=== PATIENT | male | born 1940 | race Caucasian/White ===

== ENCOUNTER 2016-12-18 17:32 | Emergency (ER) | payer MEDICARE, OTHER ==
[2016-12-18] MEDS ORDERED: Labetalol 5 MG/ML 5 ML Syringe IVPUSH ONE (18:09)
[2016-12-18] MEDS ORDERED: Labetalol 5 MG/ML 5 ML Syringe ONE (18:11)
--- NOTE | 2016-12-18 18:31 | EDM.PDOC ---
ED HPI GENERAL MEDICAL PROBLEM - General Chief Complaint: Neuro Symptoms/Deficits Stated Complaint: UNK Time Seen by Provider: 12/18/16 18:31 - History of Present Illness INITIAL COMMENTS - FREE TEXT/NARRATIVE: HISTORY AND PHYSICAL: History of present illness: Patient is a 76-year-old white male with history of hypertension and non-insulin -dependent diabetes who presents with subacute onset of right upper extremity Dense paralysis and slurred speech this occurred 2 hours prior to arrival while he was birthing a calve Review of systems: As per history of present illness and below otherwise all systems reviewed and negative. Past medical history: As per history of present illness and as reviewed below otherwise noncontributory. Surgical history: As per history of present illness and as reviewed below otherwise noncontributory. Social history: No reported history of drug or alcohol abuse. Family history: As per history of present illness and as reviewed below otherwise noncontributory. Physical exam: HEENT: Atraumatic, normocephalic, pupils reactive, negative for conjunctival pallor or scleral icterus, mucous membranes moist, throat clear, neck supple, nontender, trachea midline. Lungs: Clear to auscultation, breath sounds equal bilaterally, chest nontender. Heart: S1S2, regular, negative for clicks, rubs, or JVD. Abdomen: Soft, nondistended, nontender. Negative for masses or hepatosplenomegaly. Negative for costovertebral tenderness. Pelvis: Stable nontender. Genitourinary: Deferred. Rectal: Deferred. Extremities: Atraumatic, negative for cords or calf pain. Neurovascular unremarkable. Neuro: Patient is awake and does follow commands has a dense paralysis of the right upper extremity and dysarthria in the form of slurred speech his stroke scale of 5 Diagnostics: CBC CMP PT/INR EKG chest x-ray CT brain Therapeutics: IV O2 monitor Impression: #1 hemorrhagic stroke Definitive disposition and diagnosis as appropriate pending reevaluation and review of above. - Related Data Allergies Allergy/AdvReac Type Severity Reaction Status Date / Time No Known Allergies Allergy Verified 12/18/16 18:15 Home Meds: Home Meds Atenolol 50 mg PO DAILY 08/27/14 [History] Glimepiride [Amaryl] 1 mg PO DAILY 08/27/14 [History] Lisinopril 2.5 mg PO DAILY 08/27/14 [History] Simvastatin [Zocor] 40 mg PO DAILY 08/27/14 [History] Triamterene/Hydrochlorothiazid [Triamterene-HCTZ 37.5-25 MG] 1 tab PO DAILY 02/03 [History] metFORMIN HCl [Metformin HCl] 1.5 tab PO BID 08/27/14 [History] Aspirin [Children's Aspirin] 81 mg PO DAILY 12/18/16 [History] Flaxseed Oil [Flax Oil] 1,000 mg PO DAILY 12/18/16 [History] Glucosamine/D3/Boswellia Vijaya [Osteo Bi-Flex Caplet] 1 each PO DAILY 12/18/16 [ History] Social & Family History - Alcohol Use Days Per Week of Alcohol Use: 0 Number of Drinks Per Day: 0 Total Drinks Per Week: 0 - Recreational Drug Use Recreational Drug Use: No Drug Use in Last 12 Months: No ED ROS GENERAL - Review of Systems Review Of Systems: ROS reveals no pertinent complaints other than HPI. ED EXAM, GENERAL - Physical Exam Exam: See Below (See dictation) Course - Vital Signs Text/Narrative:: Discuss case with Dr. Betancourt at [facility] emergency department he was gracious enough to accept the patient report was given to him by myself patient will be transferred via air medical with diagnosis of hemorrhagic stroke Last Recorded V/S: Last Vital Signs Temp 36.9 C 12/18/16 18:15 Pulse 60 12/18/16 18:15 Resp 18 12/18/16 18:15 BP 180/98 H 12/18/16 18:15 Pulse Ox 98 12/18/16 18:15 - Orders/Labs/Meds Meds: Medications Discontinued Medications Generic Name Dose Route Start Last Admin Trade Name Mainorq PRN Reason Stop Dose Admin Labetalol HCl 10 mg 12/18/16 18:09 Normodyne IVPUSH 12/18/16 18:10 .BOLUS ONE Labetalol HCl Confirm 12/18/16 18:11 Normodyne Administered 12/18/16 18:12 Dose 25 mg .ROUTE .STK-MED ONE Departure - Departure Time of Disposition: 18:30 Disposition: DC/Tfer to Acute Hospital 02 Condition: serious Clinical Impression: Hemorrhagic stroke Forms: ED Department Discharge
[2016-12-18] MEDS ORDERED: Ondansetron 4 MG/2 ML SDV IVPUSH ONE ×2 (18:37)
[2016-12-18] MEDS ORDERED: Ondansetron 4 MG/2 ML SDV ONE (18:38)
[2016-12-18 19:05] VITALS: BP 185/95
--- NOTE | 2016-12-19 14:14 | CT ---
EXAM DATE: 12/18/16 PATIENT'S AGE: 76 Patient: TIFFANY GOMES Facility: [place], [place] : 1940 Study: CT Head unk. STROKE-12/18/2016 6:11:28 PM Ordering Physician: Nina Final Report: INDICATION: Stroke TECHNIQUE: CT head without contrast. COMPARISON: None FINDINGS: There is an acute left basal ganglia hematoma measuring 2.8 x 1.6 x 2.7 cm. Minimal surrounding edema. No midline shift. Periventricular white matter changes likely due to small vessel disease. Ventricular size is normal. No extra-axial fluid collection. No evidence for acute territorial infarction. Osseous structures are intact. Visualized paranasal sinuses and mastoid air cells are normally aerated. IMPRESSION: Acute left basal ganglia intraparenchymal bleed. These findings were discussed with Dr. Wood at 6:19 p.m. on December 18, 2016. Dictated by Megan Mackey MD @ Dec 18 2016 6:13PM (Electronic Signature) Report Signed by Proxy and Original Signed Document filed in the Medical Record. MTDD
== END 2016-12-18 18:45 ==
LOC: MW.ED 17:32
DX: I62.9 Nontraumatic intracranial hemorrhage, unspecified (principal); R47.81 Slurred speech; G81.91 Hemiplegia, unspecified affecting right dominant side; I10 Essential (primary) hypertension; E11.9 Type 2 diabetes mellitus without complications; Z79.82 Long term (current) use of aspirin; Z79.899 Other long term (current) drug therapy; Z79.84 Long term (current) use of oral hypoglycemic drugs
CPT/HCPCS: 70450; 80053; 84484; 85025; 85610; 93005; 96374; 99285; J2405

== ENCOUNTER → 2017-01-02 | Outpatient (CLI) | payer MEDICARE, OTHER | LOC: MW.CHFP 08:00 | PROVIDERS: ATTEND Emergency Medicine | DX: I61.0 Nontraumatic intracerebral hemorrhage in hemisphere, subcortical (principal); I10 Essential (primary) hypertension; E78.00 Pure hypercholesterolemia, unspecified; E11.9 Type 2 diabetes mellitus without complications | CPT/HCPCS: G0463 ==

== ENCOUNTER → 2017-02-12 | Outpatient (CLI) | payer MEDICARE | LOC: MW.CHFP 07:41 | PROVIDERS: ATTEND Emergency Medicine | DX: E11.9 Type 2 diabetes mellitus without complications (principal); I10 Essential (primary) hypertension; E78.00 Pure hypercholesterolemia, unspecified; I61.0 Nontraumatic intracerebral hemorrhage in hemisphere, subcortical | CPT/HCPCS: 36415; 80053; 80061; 83036; 99214 ==

== ENCOUNTER 2023-05-18 10:51 | Emergency (ER) | payer MEDICARE ==
[2023-05-18] MEDS ORDERED: Sodium Chloride 0.9% 20 ML SDV IV PRN (10:58)
[2023-05-18] MEDS ORDERED: Sodium Chloride 0.9% 10 ML Syringe FLUSH PRN (10:58)
[2023-05-18] MEDS ORDERED: Sodium Chloride 0.9% 2.5 ML Syringe FLUSH PRN (10:58)
[2023-05-18 11:06] LABS: BASOPHILS ABSOLUTE AUTO 0.1 K/uL (0.0-0.1); BASOPHILS PERCENT AUTO 0.8 % (0.0-1.5); EOSINOPHILS ABSOLUTE AUTO 0.1 K/uL (0.0-0.7); EOSINOPHILS PERCENT AUTO 2.3 % (0.0-7.0); HEMATOCRIT 37.9 % (38.0-50.0); LYMPHOCYTES ABSOLUTE AUTO 1.6 K/uL (0.6-2.4); LYMPHOCYTES PERCENT AUTO 25.4 % (16.0-40.0); MEAN CORPUSCULAR HGB CONC 34.3 g/dL (31.0-37.0); MEAN CORPUSCULAR VOLUME 93.3 fL (80.0-98.0); MONOCYTES ABSOLUTE AUTO 0.7 K/uL (0.0-0.8); MONOCYTES PERCENT AUTO 10.6 % (0.0-15.0); NEUTROPHILS ABSOLUTE AUTO 3.8 K/uL (1.4-5.7); NEUTROPHILS PERCENT AUTO 60.9 % (48.0-80.0); NRBC ABSOLUTE 0 K/uL; PLATELET COUNT,PLT 149 K/uL (150-400); RED BLOOD CELL COUNT 4.06 M/uL (4.50-5.90); WHITE BLOOD CELL COUNT,WBC 6.15 K/uL (4.0-11.0)
[2023-05-18 11:15] LABS: INR 0.98 (0.86-1.11); PTT,PARTIAL THROMBOPLSTIN TIME 27.1 SEC (23.9-30.7)
[2023-05-18 11:30] LABS: A/G RATIO 1.1 (0.9-1.6); ALBUMIN 3.8 g/dL (3.4-5.0); BILIRUBIN TOTAL 0.4 mg/dL (0.2-1.0); CALCIUM 8.9 mg/dL (8.5-10.1); CARBON DIOXIDE,CO2 23.9 mmol/L (21.0-32.0); CREATININE 1.6 mg/dL (0.8-1.3); EST CRCL DRUG DOSING (CG) 27.49 mL/min; POTASSIUM,K 4.9 mmol/L (3.5-5.1); PROTEIN TOTAL,TP 7.4 g/dL (6.4-8.2)
[2023-05-18] MEDS ORDERED: Iopamidol 755 Mg/ML 100 ML Bottle IVPUSH ONE (12:59)
[2023-05-18 15:26] VITALS: BP 133/73; PULSE 86
== END 2023-05-18 16:00 ==
LOC: MW.ED 10:51
DX: I63.9 Cerebral infarction, unspecified (principal); R29.701 NIHSS score 1; E78.00 Pure hypercholesterolemia, unspecified; I10 Essential (primary) hypertension; Z79.899 Other long term (current) drug therapy; Z79.82 Long term (current) use of aspirin
CPT/HCPCS: 36415; 70450; 70496; 70498; 71045; 80053; 84484; 85025; 85610; 85730; 93005; 99285; J3490; Q9967; 93010; 99284

== ENCOUNTER 2023-08-09 13:56 | Emergency (ER) | payer MEDICARE ==
[2023-08-09] MEDS ORDERED: Glucagon,Human Recombinant 1 MG Vial IVPUSH ONE (15:19)
[2023-08-09 19:27] VITALS: BP 136/65; PULSE 62
== END 2023-08-09 19:26 | disposition home or self-care (01) ==
LOC: MW.ED 13:56
DX: R09.A2 Foreign body sensation, throat (principal); I10 Essential (primary) hypertension; E78.00 Pure hypercholesterolemia, unspecified; M19.90 Unspecified osteoarthritis, unspecified site; E11.9 Type 2 diabetes mellitus without complications; Z79.84 Long term (current) use of oral hypoglycemic drugs; Z79.82 Long term (current) use of aspirin; Z79.899 Other long term (current) drug therapy
CPT/HCPCS: 70360; 96374; 99283; J1610; 99284